=== PATIENT | female | born 1995 | race Hispanic/Latino ===

== ENCOUNTER 2020-03-06 15:19 | Emergency (ER) | payer SELFPAY ==
--- NOTE | 2020-03-06 16:14 | EDPHYS ---
Physician Documentation [facility] Name: Tatyana Galvez Age: 24 yrs Sex: Female : 1995 Arrival Date: 03/06/2020 Time: 15:22 Bed 20 Private MD: ED Physician Andre Lr HPI: 03/06 16:37 This 24 yrs old Female presents to ER via Ambulatory with complaints of Skin kb Problem. 16:37 The patient's rash thought to be caused by an unknown cause. The rash is located on the kb left hamstring. The rash can be described as vesicular. Onset: The symptoms/episode began/occurred 3 day(s) ago. Associated signs and symptoms: Pertinent positives: Pain Pertinent negatives: fever, itching. Severity of symptoms: At their worst the symptoms were moderate in the emergency department the symptoms are unchanged. The patient has not experienced similar symptoms in the past. The patient has not recently seen a physician. "I woke up with these bumps on the back of my leg on Monday." Pt reports pain when palpated. Vesicular lesions noted. 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 - Social history:: Smoking status: Patient reports the use of cigarette tobacco products, smokes one-half pack cigarettes per day. ROS: 16:35 Constitutional: Negative for fever, chills, and weight loss, Cardiovascular: Negative kb for chest pain, palpitations, and edema, Respiratory: Negative for shortness of breath, cough, wheezing, and pleuritic chest pain, Abdomen/GI: Negative for abdominal pain, nausea, vomiting, diarrhea, and constipation, Back: Negative for injury and pain, MS/Extremity: Negative for injury and deformity, Neuro: Negative for headache, weakness, numbness, tingling, and seizure. 16:35 Skin: Positive for rash, of the left hamstring. Exam: 16:35 Constitutional: This is a well developed, well nourished patient who is awake, alert, kb and in no acute distress. Head/Face: Normocephalic, atraumatic. Chest/axilla: Normal chest wall appearance and motion. Nontender with no deformity. No lesions are appreciated. Cardiovascular: Regular rate and rhythm with a normal S1 and S2. No gallops, murmurs, or rubs. Normal PMI, no JVD. No pulse deficits. Respiratory: Lungs have equal breath sounds bilaterally, clear to auscultation and percussion. No rales, rhonchi or wheezes noted. No increased work of breathing, no retractions or nasal flaring. Abdomen/GI: Soft, non-tender, with normal bowel sounds. No distension or tympany. No guarding or rebound. No evidence of tenderness throughout. MS/ Extremity: Pulses equal, no cyanosis. Neurovascular intact. Full, normal range of motion. Neuro: Awake and alert, GCS 15, oriented to person, place, time, and situation. Cranial nerves II-XII grossly intact. Motor strength 5/5 in all extremities. Sensory grossly intact. Cerebellar exam normal. Normal gait. 16:35 Skin: consistent with zoster, on the left hamstring. Vital Signs: 15:27 BP 118 / 84; Pulse 108; Resp 14; Temp 99.5; Pulse Ox 98% ; Weight 54.43 kg; Height 5 sv ft. 2 in. (157.48 cm); 16:41 BP 119 / 75; Pulse 95; Resp 15 S; Pulse Ox 99% on R/A; ca1 15:27 Body Mass Index 21.95 (54.43 kg, 157.48 cm) sv MDM: 15:30 Patient medically screened. kb 16:36 Data reviewed: vital signs, nurses notes. Data interpreted: Pulse oximetry: on room air kb is 98 %. Interpretation: normal. Counseling: I had a detailed discussion with the patient and/or guardian regarding: the historical points, exam findings, and any diagnostic results supporting the discharge/admit diagnosis, the need for outpatient follow up, a family practitioner, to return to the emergency department if symptoms worsen or persist or if there are any questions or concerns that arise at home. Administered Medications: No medications were administered Disposition: 03/06/20 16:14 Discharged to Home. Impression: Zoster [herpes zoster]. - Condition is Stable. - Discharge Instructions: Shingles. - Prescriptions for Ibuprofen 800 mg Oral Tablet - take 1 tablet by ORAL route every 8 hours As needed take with food; 30 tablet. Valtrex 1 g Oral Tablet - take 1 tablet by ORAL route every 8 hours for 7 days; 21 tablet. - Medication Reconciliation Form, Thank You Letter, Antibiotic Education, Prescription Opioid Use form. - Follow up: Emergency Department; When: As needed; Reason: Worsening of condition. Follow up: Private Physician; When: 2 - 3 days; Reason: Recheck today's complaints, Continuance of care, Re-evaluation by your physician. Addendum: 03/09/2020 16:30 Co-signature as Attending Physician, Andre Lr MD I agree with the assessment and k dr plan of care. Signatures: Temi Barrett, [employer] BEAUTY ADVISOR-C JES-Bertha Mendes, RN RN sv Andre Lr MD MD [facility] Marbella Roger RN RN ca1 Corrections: (The following items were deleted from the chart) 03/06 16:42 16:14 03/06/2020 16:14 Discharged to Home. Impression: Zoster [herpes zoster]. ca1 Condition is Stable. Forms are Medication Reconciliation Form, Thank You Letter, Antibiotic Education, Prescription Opioid Use. Follow up: Emergency Department; When: As needed; Reason: Worsening of condition. Follow up: Private Physician; When: 2 - 3 days; Reason: Recheck today's complaints, Continuance of care, Re-evaluation by your physician. kb
--- NOTE | 2020-03-06 16:14 | ER ---
Nurse's Notes [facility] Name: Tatyana Galvez Age: 24 yrs Sex: Female : 1995 Arrival Date: 03/06/2020 Time: 15:22 Bed 20 Private MD: Diagnosis: Zoster [herpes zoster] Presentation: 03/06 15:26 Chief complaint: Patient states: "I have bumps of my left leg and they were supposed to sv make me an appt and they didn't.". Coronavirus screen: Proceed with normal triage. Patient denies a cough. Patient denies shortness of breath or difficulty breathing. Patient denies measured and/or subjective temperature greater than 100.4F prior to today's visit. Patient denies travel on a cruise ship or to a country the [facility] currently lists as an affected area. Patient denies contact with known and/or suspected case of COVID-19. Ebola Screen: No symptoms or risks identified at this time. Risk Assessment: Do you want to hurt yourself or someone else? Patient reports no desire to harm self or others. Onset of symptoms was March 04, 2020. 15:26 Method Of Arrival: Ambulatory sv 15:26 Acuity: [place] 5 sv 15:27 Initial Sepsis Screen: Does the patient meet any 2 criteria? HR > 90 bpm. No. Patient's sv initial sepsis screen is negative. Does the patient have a suspected source of infection? No. Patient's initial sepsis screen is negative. Triage Assessment: 15:27 General: Appears in no apparent distress. comfortable, Behavior is calm, cooperative, sv appropriate for age. Neuro: Level of Consciousness is awake, alert, obeys commands, Gait is steady. Respiratory: Respiratory effort is even, unlabored. 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 - Social history:: Smoking status: Patient reports the use of cigarette tobacco products, smokes one-half pack cigarettes per day. Screenin:34 Abuse screen: Denies threats or abuse. Denies injuries from another. Nutritional ca1 screening: No deficits noted. Tuberculosis screening: No symptoms or risk factors identified. Fall Risk None identified. Assessment: 15:34 General: Appears in no apparent distress. comfortable, Behavior is calm, cooperative, ca1 appropriate for age. Pain: Denies pain. Neuro: Level of Consciousness is awake, alert, obeys commands, Oriented to person, place, time, situation. Derm: Skin is intact, is healthy with good turgor, Skin is pink, warm \\T\\ dry. Rash noted that is vesicular, on left hamstring. Musculoskeletal: Circulation, motion, and sensation intact. Capillary refill < 3 seconds. 16:41 Reassessment: Patient appears in no apparent distress at this time. Patient is alert, ca1 oriented x 3, equal unlabored respirations, skin warm/dry/pink. Vital Signs: 15:27 BP 118 / 84; Pulse 108; Resp 14; Temp 99.5; Pulse Ox 98% ; Weight 54.43 kg; Height 5 sv ft. 2 in. (157.48 cm); 16:41 BP 119 / 75; Pulse 95; Resp 15 S; Pulse Ox 99% on R/A; ca1 15:27 Body Mass Index 21.95 (54.43 kg, 157.48 cm) sv ED Course: 15:22 Patient arrived in ED. as 15:26 Arm band placed on. sv 15:27 Triage completed. sv 15:30 Temi Barrett FNP-C [facility]. kb 15:30 Andre Lr MD is Attending Physician. kb 15:31 Marbella Roger, MILAN is Primary Nurse. ca1 15:34 Patient has correct armband on for positive identification. Bed in low position. Call ca1 light in reach. Side rails up X 1. Pulse ox on. NIBP on. 16:42 No provider procedures requiring assistance completed. Patient did not have IV access ca1 during this emergency room visit. Administered Medications: No medications were administered Outcome: 16:14 Discharge ordered by . kb 16:42 Discharged to home ambulatory. ca1 16:42 Condition: stable 16:42 Discharge instructions given to patient, Instructed on discharge instructions, follow up and referral plans. medication usage, Demonstrated understanding of instructions, follow-up care, medications, Prescriptions given X 2. 16:42 Patient left the ED. ca1 Signatures: Temi Barrett FNP-C FNP-Ckb Verde, Stephanie, RN RN Radha Wagner as Marbella Roger RN RN ca1
[2020-03-06 17:58] VITALS: TEMP 99.5
[2020-03-06 18:00] VITALS: BP 119/75; O2SAT 99
== END 2020-03-06 16:42 | disposition home or self-care (01) ==
LOC: ER 15:19
DX: B02.9 Zoster without complications (principal)
CPT/HCPCS: 99283